=== PATIENT | male | born 1940 | race Caucasian/White ===

== ENCOUNTER 2019-10-21 18:37 | Inpatient (IN) | payer OTHER ==
[~2019-10-21] VITALS: Ht 175.3 cm; Wt 83.9 kg
[~2019-10-21 18:37] MED LIST: ASMANEX220 MC1 INH; ASPIRIN325 PO; AZITHROMYCIN 2250 MG PO; CARVEDILOL12.5 MG PO; CEFUROXIME250 MG PO; CENTRUM SILVER1 EAC2 PO; CRESTOR10 MG PO; FISH OIL 1,001000 M2 PO; MEDROLDOSEPACK PO; MUCINEX TA600 MG/TA2 PO; NORVASC10 MG PO; OMEPRAZOLE20 M1 PO; POTASSIUM GLUCO99 M2 PO; RANEXA500 MG PO; VENTOLIN HFA 1818 GM INH; VENTOLIN HFA 1818 GM PO; VITAMIN D3 COM1 EACH PO; VITAMIN E400 UNIT PO; VITAMINC500 PO; ZYRTEC10 M5 PO
[2019-10-21 18:38] VITALS: BP 169/87
[2019-10-21] MEDS ORDERED: INTERMEZZO3.5 MG SUBLING (18:47)
[2019-10-21] MEDS ORDERED: OXYCODONE HCL10 MG PO (18:48)
[2019-10-21] MEDS ORDERED: ONDANSETRON ODT4 MG PO (18:49)
[2019-10-21] MEDS ORDERED: NEURONTIN 300300 M1 PO (18:50)
[2019-10-21 19:13] LABS: URINE BILIRUBIN NEGATIVE (Negative); URINE BLOOD NEGATIVE (Negative); URINE CLARITY CLEAR; URINE COLOR YELLOW; URINE GLUCOSE-RANDOM NEGATIVE (Negative); URINE KETONES NEGATIVE (Negative); URINE LEUKOCYTES-REFLEX NEGATIVE (Negative); URINE NITRITE-REFLEX NEGATIVE (Negative); URINE PROTEIN NEGATIVE (Negative); URINE SPECIFIC GRAVITY 1.015 (1.005-1.030)
[2019-10-21 19:26] LABS: ABSOLUTE EOSINOPHILS 0.3 thou/uL (0.0-0.7); ABSOLUTE LYMPHOCYTES 1.4 thou/uL (0.8-5.3); ABSOLUTE MONOCYTES 0.6 thou/uL (0.0-1.2); ABSOLUTE NEUTROPHILS 4.8 thou/uL (1.6-8.1); BASOPHILS 0.4 %; EOSINOPHILS 4.2 %; HEMATOCRIT 41.3 % (42.0-52.0); HEMOGLOBIN 13.3 gm/dL (14.0-18.0); LYMPHOCYTES 19.3 %; MCH 24.9 pg (26.0-34.0); MCHC 32.3 g/dL (28.0-37.0); MCV 77.2 fL (80.0-100.0); MONOCYTES 8.2 %; MPV 7.4 fl. (7.2-11.1); NUCLEATED RBCS 0 /100WBC; PLATELET COUNT* 221 thou/uL (150-400); POLYS 67.9 %; RBC 5.35 mil/uL (4.50-6.00); RDW-CV 18.1 % (10.5-14.5)
[2019-10-21 19:35] LABS: POTASSIUM 3.8 mmol/L (3.5-5.1)
[2019-10-21 19:39] LABS: ALBUMIN 2.5 g/dL (3.4-5.0); TOTAL BILIRUBIN 0.6 mg/dL (<0.1-1.0); TOTAL PROTEIN 6.2 g/dL (6.4-8.2)
[2019-10-21 22:00] VITALS: BP 142/73
[2019-10-21 22:03] VITALS: BP 139/74
[2019-10-22] VITALS: BP 144/71
[2019-10-22 04:00] VITALS: BP 154/67
--- NOTE | 2019-10-22 05:39 | NUR ---
REPORT RECIEVED FROM ER. PT ORIENTED TO ROOM, CALL LIGHT SHOWN, FALL AGREEMENT GONE OVER, PT STATED UNDERSTANDING. ADMISSION DOCUMENTED. MEDS GIVEN PER E-MAR. PT REPORTS CHRONIC LEFT HIP AND KNEE PAIN. PT IS A PATIENT OF [facility]. FALL PRECAUTIONS IN PLACE. WILL CONTINUE WITH PLAN OF CARE.
--- NOTE | 2019-10-22 06:41 | NUR ---
[facility] WILL FAX A MED LIST OVER WHEN THE OFFICE OPENS.
[2019-10-22 08:00] VITALS: BP 135/69
[2019-10-22 10:11] LABS: ALBUMIN 2.4 g/dL (3.4-5.0); CALCIUM 8.4 mg/dL (8.5-10.1); CREATININE 0.9 mg/dL (0.6-1.3); POTASSIUM 3.7 mmol/L (3.5-5.1); TOTAL BILIRUBIN 0.5 mg/dL (<0.1-1.0); TOTAL PROTEIN 5.9 g/dL (6.4-8.2)
[2019-10-22 12:19] VITALS: BP 98/49
--- NOTE | 2019-10-22 13:20 | NUR ---
Pt is A&O. Resides at home with his dtr. Pt is wc bound [facility]. Pt and family do not want hospice at [place] and want for Pt to dc to do some rehab. CM contacted La Nena at [facility], Pt was there for skilled from 06/23-08/25, Pt has skilled days remaining and [facility] informed that they can accept Pt back for skilled pending therapy evals. Dtr expressed that Pt will need his own DME prior to returning home, Pt currently has a hospital bed, wc and stand lift provided through hospice, Pt will need to secure his own DME. CM to assist with getting orders. CM following
--- NOTE | 2019-10-22 14:30 | NUR ---
CM faxed hospital bed order and wc order to Shari at [facility]. Shari informed that they would only be able to provide a leanne lift, not a sit to stand lift. CM to discuss with dtr. Plan would be for DME to be delivered to Pt's home post SNF stay, pending ins approval.
--- NOTE | 2019-10-22 14:39 | EKG ---
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: : 1940 Requested By: Mane Ramirez Order Number: [id number] MD: Shashi Veras Measurements Intervals [place] Rate: 199 P: 0 [place]: 160 QRS: 49 QRSD: 120 T: 8 QT: 425 QTc: 773 Interpretive Statements normal sinus rhythm with first degree AV block artifact noted Compared to ECG 12/14/2016 05:11:19 T-wave abnormality no longer present Electronically Signed On 10-22-2019 14:39:18 NUCLEAR MEDICINE SUPERVISOR by Shashi Veras [email or web address] <ELECTRONICALLY SIGNED> By: Shashi Veras MD, FACC 10/22/19 1439 [id number] [id number] Shashi Veras MD, [facility] /EPI
--- NOTE | 2019-10-22 15:56 | 2DMMODE ---
[place] [address] 2 D/M-MODE ECHOCARDIOGRAM Name: ROCKY RODRIGUEZ Room: [address] IN [facility]#: [id number] Admission: 10/21/19 Attend Phys: Delaney Rivers Discharge: Date of : 42 Date of Service: 10/22/19 1556 Report #: [id number] THIS REPORT FOR: //name// APPROVED REPORT Study performed: 10/22/2019 11:02:49 EXAM: Comprehensive 2D, Doppler, and color-flow Echocardiogram Patient Location: In-Patient Room #: 202 Status: routine BSA: 1.94 HR: 68 bpm BP: 135/69 mmHg Rhythm: NSR Other Information Technically limited study due to patient unable to position arm so I could get good apical views. Indications Syncope 2D Dimensions IVSd: 13.94 (7-11mm) LVOT Diam: 22.11 (18-24mm) LVDd: 53.41 mm PWd: 13.13 (7-11mm) LVDs: 27.29 (25-40mm) Aortic Root: 32.14 mm Aortic Valve AoV Peak Gabo.: 1.12 m/s AO Peak Gr.: 5.06 mmHg LVOT Max P.14 mmHg AO Mean Gr.: 2.74 mmHg LVOT Mean P.16 mmHg LVOT Max V: 0.73 m/s AO V2 VTI: 20.71 cm LVOT Mean V: 0.50 m/s CHRISTINA (VTI): 2.89 cm2 LVOT V1 VTI: 15.60 cm Mitral Valve E/A Ratio: 0.85 MV Decel. Time: 337.73 ms MV E Max Gabo.: 0.63 m/s MV PHT: 97.94 ms MVA (PHT): 2.25 [place]2 [place] [address] 2 D/M-MODE ECHOCARDIOGRAM Name: ROCKY RODRIGUEZ Room: [address] IN [facility].#: [id number] Admission: 10/21/19 Attend Phys: Delaney Rivers Discharge: Date of : 42 Date of Service: 10/22/19 1556 Report #: [id number] Pulmonary Valve PV Peak Gabo.: 0.98 m/s PV Peak Gr.: 3.82 mmHg Left Ventricle The left ventricle is normal size. There is normal LV segmental wall motion. Mild concentric left ventricular hypertrophy. Left ventricular systolic function is normal. The left ventricular ejection fraction is within the normal range. LVEF is 65-70%. Grade I - abnormal relaxation pattern. Right Ventricle The right ventricle is normal size. The right ventricular systolic function is normal. Atria The left atrium size is normal. The right atrium size is normal. Aortic Valve The aortic valve is not well visualized. No aortic regurgitation is present. There is no aortic valvular stenosis. Mitral Valve The mitral valve is normal in structure. There is no mitral valve regurgitation noted. No evidence of mitral valve stenosis. Tricuspid Valve The tricuspid valve is normal in structure. Unable to assess PA pressure. Trace tricuspid regurgitation. Pulmonic Valve The pulmonary valve is normal in structure. There is no pulmonic valvular regurgitation. Great Vessels The aortic root is normal in size. IVC is not visualized. Pericardium There is no pericardial effusion. <Conclusion> [place] [address] 2 D/M-MODE ECHOCARDIOGRAM Name: ROCKY RODRIGUEZ Room: [address] IN .R.#: [id number] Admission: 10/21/19 Attend Phys: Delaney Rivers Discharge: Date of : 42 Date of Service: 10/22/19 1556 Report #: [id number] Mild concentric left ventricular hypertrophy. LVEF is 65-70%. <ELECTRONICALLY SIGNED> By: Shashi Veras MD, [facility] 10/22/19 [phone] Shashi Veras MD, FACC /INF
[2019-10-22 17:42] VITALS: BP 102/46
--- NOTE | 2019-10-22 18:45 | NUR ---
RECEIVED REPORT. ASSUMED CARE OF PT AROUND [id number]. PT A&O X4, FLAT AFFECT. VSS. CATERING ADMINISTRATIVE ASSISTANT IN PLACE TRACING SR TO SB WITH 1ST DEGREE. AM ASSESSMENT AND VITALS COMPLETED CHARTED. IV INTACT. MEDS PER EMAR. PO AND TOPICAL PAIN MEDICATION GIVEN AT PT REQUEST TO MANAGE LEFT LEG PAIN. FAMILY AT BEDSIDE THIS AFTERNOON, HOSPICE CARE ENDED PT WANTS TO PURSE TREATMENTS. NEUROLOGY IN TO SEE PT THIS AM. PT WITH POOR APPETITE. INCONTINENCE NOTED - PT ENCOURAGED TO USE CALL LIGHT WHEN HE NEEDS ASSISTANCE WITH URINATING - PT STATED "I DIDN'T PEE ON MYSELF I SPILT WATER". PT ABLE TO USE CALL LIGHT TO ASK FOR PAIN MEDICATION. PLAN IS FOR PT TO DC TO [facility] IN THE NEXT FEW DAYS. PT REPOSITIONED Q2HRS. CALL LIGHT WITHIN REACH. HOURLY ROUNDING PERFORMED. FALL PRECAUTIONS IN PLACE.
[2019-10-22 20:00] VITALS: BP 127/54
[2019-10-23] VITALS: BP 97/58
[2019-10-23 00:07] LABS: AMP/METHAMP Negative (Negative); BARBITURATES Negative (Negative); BENZODIAZEPINES Negative (Negative); COCAINE Negative (Negative); METHADONE Negative (Negative); OPIATES POSITIVE (Negative); PCP Negative (Negative); THC Negative (Negative)
[2019-10-23 02:10] LABS: GLYCOHEMOGLOBIN (HGB A1C) 5.5 % (4.8-5.6)
[2019-10-23 04:00] VITALS: BP 114/57
[2019-10-23 05:29] LABS: CHOLESTEROL 181 mg/dL (<200); HDL CHOLESTEROL 29 mg/dL (>40); LDL CHOLESTEROL 126 mg/dL (<100); SERUM ASSESSMENT CLEAR; TC:HDL 6.2 Ratio (Not establshd); TRIGLYCERIDE 130 mg/dL (<150); VLDL 26 mg/dL (<40)
--- NOTE | 2019-10-23 07:20 | NUR ---
CHANGE OF SHIFT REPORT GIVEN PATIENT SEEN AT BEDSIDE, IN BED ASLEEP ASSUMED PATIENT CARE
[2019-10-23 08:00] VITALS: BP 80/41
--- NOTE | 2019-10-23 08:06 | NUR ---
ASSUMED PATIENT CARE AT 1900. ASSESSMENT COMPLETED CHARTED. PATIENT IS SR WITH A 1D ON THE MONITOR. PAIN MEDS GIVEN PER EMAR. REPOSITIONED DURING NIGHT. PATIENT VOIDED PER URINAL. HOURLY ROUNDING IN PLACE FOR PATIENT SAFETY. CLWR.
--- NOTE | 2019-10-23 08:26 | NUR ---
I HAVE REVIEWED THE DOCUMENTATION OF ERNIE RILEY. I CONCUR WITH HIS CHARTING.
--- NOTE | 2019-10-23 10:19 | NUR ---
CM faxed therapy evals to [facility]
--- NOTE | 2019-10-23 12:35 | NUR ---
[facility] is able to accept Pt for skilled tomorrow, CM updated dtr/DPOA. Contact Anastasia at [facility] to arrange dc [phone], fax [phone]
[2019-10-23 15:33] VITALS: BP 92/47
--- NOTE | 2019-10-23 18:25 | NUR ---
PATIENTS STATUS CHANGED TO MS EARLIER TODAY PATIENT TRANSFERRED TO RM 115 VIA BED PERSONAL BELONGINGS SENT WITH PATIENT REPORT GIVEN TO JOSEY RILEY CALLED AND NOTIFIED OF PATIENTS TRANSFER
[2019-10-23 19:48] VITALS: BP 117/58
--- NOTE | 2019-10-24 05:37 | NUR ---
PATIENT RECEIVED PAIN MEDICATION 2X AND LIDACAINE CREAM ON LEFT KNEE AND SHOULDER FOR PAIN AND DISCOMFORT. I ENCOURAGED FLUID INTAKE WITH PATIENT. HE WAS ABLE TO SLEEP THROUGH THE NIGHT. NO REPORT OF WORSENING OF CONDITION. WILL CONTINUE TO FOLLOW PLAN OF CARE.
[2019-10-24 08:30] VITALS: BP 131/56
[2019-10-24] MEDS ORDERED: CARVEDILOL3.125 MG PO (09:02)
[2019-10-24 11:06] VITALS: BP 118/52
[2019-10-24 14:50] VITALS: BP 118/52
[2019-10-24 15:21] VITALS: BP 124/57
--- NOTE | 2019-10-24 16:55 | NUR ---
PATIENT DISCHARGED FROM UNIT AT 1650. ALERT AND ORIENTED, BUT FORGETFUL AT TIMES. IV DISCONTINUED. PAIN BEING MANAGED WITH PO MEDICATION AND TOPICAL CREAM. DENIES NAUSEA. DISCHARGE INSTRUCTIONS AND SCRIPTS GIVEN TO TRANSPORTER. PATIENT LEFT WITH TRANSPORTER IN WHEELCHAIR VIA WHEELCHAIR VAN TO GO TO [facility].
[2019-10-24 17:31] VITALS: BP 118/52
== END 2019-10-24 16:50 | DRG 312 ==
LOC: M.ERS 18:37 → M.TBA-ER 21:06 → M.2W 21:06 → M.ORTHSURG 10-23 18:35
PROVIDERS: Emergency Medicine Emergency Medical Services; Internal Medicine; ADMIT Internal Medicine
DX: I95.2 Hypotension due to drugs (principal); I69.854 Hemiplegia and hemiparesis following other cerebrovascular disease affecting left non-dominant side; E44.0 Moderate protein-calorie malnutrition; J44.9 Chronic obstructive pulmonary disease, unspecified; F31.9 Bipolar disorder, unspecified; I10 Essential (primary) hypertension; G89.29 Other chronic pain; G47.00 Insomnia, unspecified; Z51.5 Encounter for palliative care; Z90.49 Acquired absence of other specified parts of digestive tract; Z88.8 Allergy status to other drugs, medicaments and biological substances; Z82.49 Family history of ischemic heart disease and other diseases of the circulatory system; Z87.891 Personal history of nicotine dependence; Z79.891 Long term (current) use of opiate analgesic; Z68.27 Body mass index [BMI] 27.0-27.9, adult